=== PATIENT | male | born 1995 | race Caucasian/White ===

== ENCOUNTER 2017-06-29 14:08 | Emergency (ER) | payer OTHER ==
[~2017-06-29] VITALS: Ht 180.3 cm; Wt 66.0 kg
[~2017-06-29 14:08] MED LIST: CITA20TA4 PO; FEXO1TAB58 PO; FLUT0.15 NAE; METH30CA PO; PANT40TA PO
[2017-06-29] MEDS ORDERED: DEXTROSE 50% 50 ML SYR IV STA (14:20)
[2017-06-29] MEDS ORDERED: ONDANSETRON INJ 2 MG/ML 2 ML VIAL IV STA (14:20)
[2017-06-29] MEDS ORDERED: KETOROLAC TROMETHAMINE 30 MG/ML VIAL IV STA (14:20)
[2017-06-29 14:23] VITALS: Ht 180.3 cm; Wt 66.0 kg
--- NOTE | 2017-06-29 14:27 | EMERGENCY ROOM VISIT NOTE ---
History Report prepared by Shahid: Chaz Lechuga Under the Supervision of: Dr. Fredi Edwards M.D. First contact with patient: 14:15 Chief Complaint: HYPOGLYCEMIA Stated Complaint: ILLNESS History of Present Illness The patient is a 21 year old male who presents to the Emergency Room with complaints of constant diaphoresis and his heart beating out of his chest which began this afternoon 2-3 hours ago. When asked why the patient called for the ambulance he states that "I thought I was going to ." According to nursing staff the patient's blood sugar was 59 upon arrival to the ED. The patient continued to admit that he was drinking heavily last night and was still intoxicated when he woke up this morning at 0900. He has not eaten today. The patient has a history of panic attacks and takes Citalopram. He has not taken this mediation in the past three days. 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 Review of Systems See HPI for pertinent positives & negatives. A total of 10 systems reviewed and were otherwise negative. Past Medical & Surgical Medical Problems: (1) Closed head injury (2) Eosinophilic esophagitis (3) Esophageal obstruction due to food impaction Family History Heart disease Hypertension Social History Smoking Status: Never Smoker Marital Status: single Housing Status: lives with roommate Occupation Status: [employer] Current/Historical Medications Scheduled Fluoxetine Hcl (Prozac), 40 MG PO DAILY Lansoprazole (Prevacid), 30 MG PO DAILY Pantoprazole (Protonix), 40 MG PO QPM Allergies Coded Allergies: Cephalosporins (Verified Allergy, Intermediate, Childhood allergy, 06/29/17 ) Penicillins (Verified Allergy, Intermediate, Childhood Allergy, 06/29/17) Physical Exam Vital Signs Date Time Temp Pulse Resp B/P (MAP) Pulse Ox O2 Delivery O2 Flow Rate FiO2 06/29/17 20:15 62 18 128/83 98 06/29/17 19:00 72 18 121/66 96 Room Air 06/29/17 18:30 58 16 127/58 96 Room Air 06/29/17 17:00 63 16 107/62 97 Room Air 06/29/17 15:20 36.4 65 19 117/62 96 Room Air 06/29/17 14:50 73 06/29/17 14:44 100 Room Air 06/29/17 14:23 34.2 76 28 117/59 97 Room Air Physical Exam GENERAL: Patient is extremely diaphoretic and uncooperative with examination. HEAD: Normocephalic atraumatic EYES: Ocular movements intact pupils equal and react to light OROPHARYNX mucous membranes are moist no exudates present no erythema or edema present NECK: Supple no nuchal rigidity CHEST: Good equal expansion LUNGS: Clear and equal to auscultation CARDIAC: Normal S1 and S2 ABDOMEN: Soft nontender no guarding BACK: No CVA tenderness EXTREMITIES: No pain upon palpation normal muscle strength in all groups no clubbing cyanosis or edema SKIN: Extremely diaphoretic on exam. NEURO: Patient is following commands and answering questions appropriately. Alert and oriented x3 Cranial Nerves 2-12 grossly intact Medical Decision & Procedures ER Provider Diagnostic Interpretation: Radiology results as stated below per my review and radiologist interpretation: CHEST ONE VIEW PORTABLE CLINICAL HISTORY: Pt c/o hypoglycemia dyspnea COMPARISON STUDY: No previous studies for comparison. FINDINGS: The bones soft tissues and hemidiaphragms are normal. The cardiomediastinal silhouette is normal. The lungs are clear. The pulmonary vasculature is normal. IMPRESSION: Negative chest. The above report was generated using voice recognition software. It may contain grammatical, syntax or spelling errors. Electronically signed by: Dwayne Julien M.D. 06/29/2017 2:53 PM Dictated Date/Time: 06/29/2017 2:53 PM Laboratory Results 06/29/17 15:01 Red Blood Count 4.75, Mean Corpuscular Volume 90.1, Mean Corpuscular Hemoglobin 30.9, Mean Corpuscular Hemoglobin Concent 34.3, Mean Platelet Volume 9.8, Neutrophils (%) (Auto) 83.5, Lymphocytes (%) (Auto) 9.6, Monocytes (%) (Auto) 2.6, Eosinophils (%) (Auto) 3.6, Basophils (%) (Auto) 0.4, Neutrophils # (Auto) 12.29, Lymphocytes # (Auto) 1.42, Monocytes # (Auto) 0.38, Eosinophils # (Auto) 0.53, Basophils # (Auto) 0.06 06/29/17 15:01 Test 06/29/17 14:55 06/29/17 15:01 06/29/17 15:46 06/29/17 19:20 Influenza Type A Antigen Neg for Influ A (NEG) Influenza Type B Antigen Neg for Influ B (NEG) White Blood Count 14.72 K/uL (4.8-10.8) Red Blood Count 4.75 M/uL (4.7-6.1) Hemoglobin 14.7 g/dL (14.0-18.0) Hematocrit 42.8 % (42-52) Mean Corpuscular Volume 90.1 fL (80-100) Mean Corpuscular Hemoglobin 30.9 pg (25-34) Mean Corpuscular Hemoglobin Concent 34.3 g/dl (32-36) Platelet Count 279 K/uL (130-400) Mean Platelet Volume 9.8 fL (7.4-10.4) Neutrophils (%) (Auto) 83.5 % Lymphocytes (%) (Auto) 9.6 % Monocytes (%) (Auto) 2.6 % Eosinophils (%) (Auto) 3.6 % Basophils (%) (Auto) 0.4 % Neutrophils # (Auto) 12.29 K/uL (1.4-6.5) Lymphocytes # (Auto) 1.42 K/uL (1.2-3.4) Monocytes # (Auto) 0.38 K/uL (0.11-0.59) Eosinophils # (Auto) 0.53 K/uL (0-0.5) Basophils # (Auto) 0.06 K/uL (0-0.2) RDW Standard Deviation 43.4 fL (36.4-46.3) RDW Coefficient of Variation 13.0 % (11.5-14.5) Immature Granulocyte % (Auto) 0.3 % Immature Granulocyte # (Auto) 0.04 K/uL (0.00-0.02) Red Blood Cell Morphology Unremarkable Anion Gap 16.0 mmol/L (3-11) Est Creatinine Clear Calc Drug Dose 99.2 ml/min Estimated GFR () 110.6 Estimated GFR (Non- 95.5 BUN/Creatinine Ratio 16.7 (10-20) Calcium Level 9.0 mg/dl (8.5-10.1) Total Bilirubin 0.8 mg/dl (0.2-1) Direct Bilirubin 0.2 mg/dl (0-0.2) Aspartate Amino Transf (AST/SGOT) 27 U/L (15-37) Alanine Aminotransferase (ALT/SGPT) 24 U/L (12-78) Alkaline Phosphatase 47 U/L (45-117) Total Creatine Kinase 417 U/L (39-308) Creatine Kinase MB 2.0 ng/ml (0.5-3.6) Creatine Kinase MB Ratio 0.5 (0-3.0) Troponin I < 0.015 ng/ml (0-0.045) Total Protein 7.6 gm/dl (6.4-8.2) Albumin 4.6 gm/dl (3.4-5.0) Ethyl Alcohol mg/dL 13.0 mg/dl (0-3) Bedside Glucose 150 mg/dl (70-99) Urine Color YELLOW Urine Appearance CLEAR (CLEAR) Urine pH 5.0 (4.5-7.5) Urine Specific [place] 1.020 (1.000-1.030) Urine Protein NEG (NEG) Urine Glucose (UA) NEG (NEG) Urine Ketones 2+ (NEG) Urine Occult Blood NEG (NEG) Urine Nitrite NEG (NEG) Urine Bilirubin NEG (NEG) Urine Urobilinogen NEG (NEG) Urine Leukocyte Esterase NEG (NEG) Urine Opiates Screen NEG (NEG) Urine Methadone, Qualitative NEG (NEG) Urine Barbiturates NEG (NEG) Urine Phencyclidine (PCP) Level NEG (NEG) Ur Amphetamine/Methamphetamine NEG (NEG) MDMA (Ecstasy) Screen NEG (NEG) Urine Benzodiazepines Screen NEG (NEG) Urine Cocaine Metabolite POS (NEG) Urine Marijuana (THC) POS (NEG) Labs reviewed by ED physician. Medications Administered Medications (Trade) Dose Ordered Sig/Javy Route Start Time Stop Time Status Last Admin Dose Admin Multivitamins 10 ml/Thiamine HCl 100 mg/Folic Acid 1 mg/Sodium Chloride 1,011.2 ml @ 500 mls/ hr Q2H2M ONCE IV 06/29/17 14:30 06/29/17 16:31 DC 06/29/17 15:23 500 MLS/HR Ketorolac Tromethamine (Toradol Inj) 30 mg NOW STAT IV 06/29/17 14:20 06/29/17 14:22 DC 06/29/17 15:50 30 MG Ondansetron HCl (Zofran Inj) 4 mg NOW STAT IV 06/29/17 14:20 06/29/17 14:22 DC 06/29/17 15:49 4 MG Lorazepam (Ativan Inj) 1 mg NOW STAT IV 06/29/17 14:35 06/29/17 14:36 DC 06/29/17 15:49 1 MG Potassium Chloride (Mary Ciel Elix) 40 meq NOW STAT PO 06/29/17 15:48 06/29/17 15:49 DC 06/29/17 15:56 40 MEQ ECG Per My Interpretation Indication: diaphoresis, palpitations Rate (beats per minute): 74 Rhythm: sinus rhythm Findings: prolonged QT, other (Normal axis, No ST elevation or Depressions) ED Course 1416: Past medical records reviewed. The patient was evaluated in room B5. A complete history and physical examination was performed. 1420: Ordered Dextrose 50 mL IV, Zofran 4 mg IV, Toradol 30 mg IV. 1430: Ordered Multivitamins 10 mL/Thiamine HCl 100 mg/Folic Acid 1 mg/Sodium Chloride 1,011.2 mL @ 500 mL/hr IV. 1431: The nursing staff called to inform me that the patient just admitted to using cocaine last night. 1435: Ordered Lorazepam 1 mg IV. 1548: Ordered Potassium Chloride 40 meq PO. 1736: Upon reexamination the patient is resting in bed. I discussed results and treatment plan with the patient. He verbalizes agreement and understanding. The patient is ready for discharge. Medical Decision Differential diagnosis: Etiologies such as viral syndrome, otitis, pharyngitis, pneumonia, influenza, meningitis, urinary tract infection, sepsis, bacteremia, as well as others were entertained. This is a 21-year-old male who presents emergency department complaining of drinking marijuana and cocaine last evening. The patient presents hypoglycemic diaphoretic complaining of chest pain. Due to his cocaine use he was given Ativan in the emergency department. He was found to have a normal EKG as well as normal cardiac enzymes including CK-MB and troponin. Repeat examination revealed much improvement the patient's symptoms. The patient has not had any food today and I suspect he feels terrible because of his blood sugar. I Believe this is due to his alcohol intake in addition to his polypharmacy abuse. Patient was given Gatorade here in the emergency department which resulted in immediate improvement in his blood sugar and does have an elevation in his white blood count cell count however I do not see any evidence of infection. Repeat examination revealed improvement patient's symptoms. While waiting for the patient's mother did show up I was called to the room over the fact that his mother had arrived and was quite irate with nursing staff as well as our treatment of the patient. Mother is irate that the patient was given Ativan when he has admitted to cocaine use. I pointed out to the mother that Ativan is the treatment for cocaine use and it was given based on the way the patient presented to the emergency department. Mother is belligerent and cursing so I offered to start our conversation again. I will note that this occurred during a period of high volume high acuity. Mother was placed in a private room where I went over the patient's care [id number]. I will note that I have permission from the patient to speak with his mother. Mother is frustrated because the patient has early been in drug rehabilitation and cannot believe he is back here. I offered to get case management involved to get him into rehabilitation however mother declined this. She is going to go by the patient fast food no I will note that the patient had already received a meal here in the emergency department. The mother believes that the patient is to out of it from the Ativan and should be admitted however I noted that I have had several conversations with the patient This and suggested the patient may be avoiding talking to his mother. When she showed up with fast food the patient immediately woke and ate the food. I do feel that this patient is well enough to be discharged home. I strongly cautioned him on the use of alcohol as well as illegal drugs. Medication Reconcilliation Current Medication List: was personally reviewed by me Blood Pressure Screening Patient's blood pressure: Normal blood pressure Impression Primary Impression: Hypoglycemia Scribe Attestation The scribe's documentation has been prepared under my direction and personally reviewed by me in its entirety. I confirm that the note above accurately reflects all work, treatment, procedures, and medical decision making performed by me. Departure Information Dispostion Home / Self-Care Referrals No Doctor, Assigned (PCP) Forms HOME CARE DOCUMENTATION FORM, IMPORTANT VISIT INFORMATION, WORK / SCHOOL INSTRUCTIONS Patient Instructions My [facility] Additional Instructions Increase fluids next 48 hours You have been examined and treated today on an emergency basis only. This is not a substitute for, or an effort to provide, complete comprehensive medical care. It is impossible to recognize and treat all injuries or illnesses in a single emergency department visit. It is therefore important that you follow up closely with [facility]. Call as soon as possible for an appointment. Thank you for your time and consideration. I look forward to speaking with you again soon. Please don't hesitate to call us if you have any questions.
[2017-06-29] MEDS ORDERED: MULTI-VITAMIN INFUSION INJ 10 ML, THIAMINE HCL INJ 100 MG, FoLIC ACID INJ 1 MG in SODIU... IV ONE (14:30)
[2017-06-29] MEDS ORDERED: LORAZEPAM 2 MG/ML 1 ML VIAL IV STA (14:35)
[2017-06-29 14:44] VITALS: O2SAT 100
--- NOTE | 2017-06-29 14:55 | DIAGNOSTIC IMAGING REPORT ---
CHEST ONE VIEW PORTABLE CLINICAL HISTORY: Pt c/o hypoglycemia dyspnea COMPARISON STUDY: No previous studies for comparison. FINDINGS: The bones soft tissues and hemidiaphragms are normal. The cardiomediastinal silhouette is normal. The lungs are clear. The pulmonary vasculature is normal. IMPRESSION: Negative chest. The above report was generated using voice recognition software. It may contain grammatical, syntax or spelling errors. Electronically signed by: Dwayne Julien M.D. 06/29/2017 2:53 PM Dictated Date/Time: 06/29/2017 2:53 PM
[2017-06-29 15:20] VITALS: TEMP 36.4
[2017-06-29 15:21] LABS: HEMATOCRIT 42.8 % (42-52); HEMOGLOBIN 14.7 g/dL (14.0-18.0); MEAN CELL VOLUME 90.1 fL (80-100); MEAN CORPUSCULAR HEMOGLOBIN 30.9 pg (25-34); MEAN CORPUSCULAR HGB CONC 34.3 g/dl (32-36); MEAN PLATELET VOLUME 9.8 fL (7.4-10.4); PLATELET COUNT 279 K/uL (130-400); RED CELL DISTRIBUTION WIDTH SD 43.4 fL (36.4-46.3); WHITE BLOOD COUNT 14.72 K/uL (4.8-10.8)
[2017-06-29 15:46] LABS: ALBUMIN 4.6 gm/dl (3.4-5.0); ALT/SGPT 24 U/L (12-78); AST/SGOT 27 U/L (15-37); BLOOD UREA NITROGEN 18 mg/dl (7-18); CARBON DIOXIDE 18 mmol/L (21-32); GLUCOSE 142 mg/dl (70-99); POTASSIUM 3.4 mmol/L (3.5-5.1); SODIUM 138 mmol/L (136-145)
[2017-06-29] MEDS ORDERED: POTASSIUM CHLORIDE 20 MEQ/15 ML UDC PO STA (15:48)
[2017-06-29 15:49] LABS: INFLUENZA B ANTIGEN Neg for Influ B (NEG)
[2017-06-29 15:50] LABS: BASO % 0.4 %; BASO ABS # 0.06 K/uL (0-0.2); EOS % 3.6 %; EOS ABS # 0.53 K/uL (0-0.5); IG# 0.04 K/uL (0.00-0.02); LYMPH % 9.6 %; LYMPH ABS # 1.42 K/uL (1.2-3.4); MONO % 2.6 %; MONO ABS # 0.38 K/uL (0.11-0.59); NEUT % 83.5 %; NEUT ABS # 12.29 K/uL (1.4-6.5)
[2017-06-29 15:51] LABS: ALKALINE PHOSPHATASE 47 U/L (45-117); TOTAL PROTEIN 7.6 gm/dl (6.4-8.2)
[2017-06-29] MEDS ORDERED: LANS30CA63 PO (15:54)
[2017-06-29] MEDS ORDERED: PRZ/40 PO (15:54)
[2017-06-29 20:15] VITALS: BP 128/83; PULSE 62; O2SAT 98
== END 2017-06-29 20:16 | disposition home or self-care (01) ==
LOC: EDBD 14:08 → C.EDB 14:08
DX: E16.2 Hypoglycemia, unspecified (principal); Z82.49 Family history of ischemic heart disease and other diseases of the circulatory system